=== PATIENT | female | born 1995 | race Caucasian/White ===

== ENCOUNTER 2023-12-06 17:13 | Emergency (ER) | payer BC, OTHER ==
[2023-12-06] MEDS ORDERED: Sodium Chloride 0.9% 10 ML Syringe FLUSH PRN (17:28)
[2023-12-06] MEDS: Sodium Chloride 0.9% 1,000 ML IV SCH (17:33)
[2023-12-06] MEDS: LORazepam 2 MG/ML SDV IVPUSH ONE ×4 (17:36→19:00)
[2023-12-06 17:43] LABS: BASOPHILS ABSOLUTE AUTO 0.1 x10-3/uL (0.0-0.1); BASOPHILS PERCENT AUTO 0.8 % (0.2-1.5); EOSINOPHILS ABSOLUTE AUTO 0.7 x10-3/uL (0.0-0.8); EOSINOPHILS PERCENT AUTO 6.6 % (0.6-8.1); HEMOGLOBIN 14.4 g/dL (11.4-15.5); LYMPHOCYTES ABSOLUTE AUTO 1.6 x10-3/uL (1.0-4.4); MEAN CORPUSCULAR HEMOGLOBIN 30.7 pg (23.9-33.9); MEAN CORPUSCULAR HGB CONC 32.7 g/dL (31.9-34.8); MEAN CORPUSCULAR VOLUME 93.8 fL (76.7-100.5); MEAN PLATELET VOLUME 9.8 fL (7.1-12.4); MONOCYTES ABSOLUTE AUTO 0.8 x10-3/uL (0.3-1.0); MONOCYTES PERCENT AUTO 6.7 % (4.4-15.7); NEUTROPHILS PERCENT AUTO 71.9 % (30.8-76.2); PLATELET COUNT,PLT 306 x10(3)uL (151-488); RED BLOOD CELL COUNT 4.69 x10(6)uL (3.60-5.20); RED CELL DISTRIBUTION WIDTH 13.4 % (12.3-16.5); WHITE BLOOD CELL COUNT,WBC 11.2 x10-3/uL (3.0-10.3)
[2023-12-06 17:45] LABS: BLOOD UREA NITROGEN,BUN 23 mg/dL (7-18); BUN/CREATININE RATIO 20.9 (9-20); CALCIUM 9.1 mg/dL (8.6-10.2); CARBON DIOXIDE,CO2 19 mmol/L (21-32); CHLORIDE,CL 102 mmol/L (100-110); CREATININE 1.1 mg/dL (0.55-1.02); ESTIMATED GFR 70 mL/min (>60); GLUCOSE RANDOM 116 mg/dL (80-116); POTASSIUM,K 3.3 mmol/L (3.5-5.3); SODIUM,NA 139 mmol/L (135-145)
[2023-12-06 17:51] LABS: A/G RATIO 1.2; ALANINE AMINOTRANSFERASE,ALT 128 U/L (12-36); ALBUMIN 3.7 g/dL (3.5-5.2); ALKALINE PHOSPHATASE 97 IU/L (56-112); ASPARTATE AMNIOTRANSFERASE,AST 73 IU/L (5-25); BILIRUBIN TOTAL 1.3 mg/dL (0.1-1.3); MAGNESIUM 1.7 mg/dL (1.8-2.5); PROTEIN TOTAL,TP 6.9 g/dL (6.0-8.0)
[2023-12-06] MEDS: Magnesium Sulfate/Water 2 GM in Premix Bag 1 BAG IV ONE (18:15)
[2023-12-06] MEDS: Potassium Chloride 20 MEQ in Premix Bag 1 BAG IV ONE (18:33)
[2023-12-06] MEDS: NS + KCl 20mEq/L 1,000 ML IV SCH (18:36)
== END 2023-12-06 22:29 | disposition home or self-care (01) ==
LOC: FB.ED 17:13
DX: F15.920 Other stimulant use, unspecified with intoxication, uncomplicated (principal); E83.42 Hypomagnesemia; E87.6 Hypokalemia; E66.9 Obesity, unspecified; Z79.899 Other long term (current) drug therapy; Z88.0 Allergy status to penicillin; Z91.048 Other nonmedicinal substance allergy status; Z91.018 Allergy to other foods; Z68.23 Body mass index [BMI] 23.0-23.9, adult
CPT/HCPCS: 36415; 80053; 82947; 83735; 85025; 85379; 86140; 93005; 93010; 96361; 96365; 96366; 96368; 96375; 96376; 99284; 99285; J2060; J3475; J3480; J7030

== ENCOUNTER 2024-03-31 15:15 | Emergency (ER) | payer BC ==
[2024-03-31 15:43] LABS: BLOOD UREA NITROGEN,BUN 15 mg/dL (7-18); BUN/CREATININE RATIO 18.8 (9-20); CALCIUM 8.9 mg/dL (8.6-10.2); CARBON DIOXIDE,CO2 24 mmol/L (21-32); CHLORIDE,CL 103 mmol/L (100-110); CREATININE 0.8 mg/dL (0.55-1.02); EST CRCL DRUG DOSING (CG) 92.53 mL/min; ESTIMATED GFR 102 mL/min (>60); GLUCOSE RANDOM 108 mg/dL (80-116); POTASSIUM,K 3.4 mmol/L (3.5-5.3); SODIUM,NA 139 mmol/L (135-145)
[2024-03-31 15:44] LABS: BASOPHILS ABSOLUTE AUTO 0.1 x10-3/uL (0.0-0.1); BASOPHILS PERCENT AUTO 0.9 % (0.2-1.5); EOSINOPHILS ABSOLUTE AUTO 0.3 x10-3/uL (0.0-0.8); EOSINOPHILS PERCENT AUTO 4.1 % (0.6-8.1); HEMATOCRIT 41.9 % (34.2-48.2); HEMOGLOBIN 13.8 g/dL (11.4-15.5); LYMPHOCYTES ABSOLUTE AUTO 1.8 x10-3/uL (1.0-4.4); LYMPHOCYTES PERCENT AUTO 24.9 % (18.4-52.1); MEAN CORPUSCULAR HEMOGLOBIN 30.5 pg (23.9-33.9); MEAN CORPUSCULAR HGB CONC 32.9 g/dL (31.9-34.8); MEAN CORPUSCULAR VOLUME 92.5 fL (76.7-100.5); MEAN PLATELET VOLUME 9.5 fL (7.1-12.4); MONOCYTES ABSOLUTE AUTO 0.6 x10-3/uL (0.3-1.0); MONOCYTES PERCENT AUTO 7.7 % (4.4-15.7); NEUTROPHILS ABSOLUTE AUTO 4.5 x10-3/uL (1.5-6.3); NEUTROPHILS PERCENT AUTO 62.4 % (30.8-76.2); PLATELET COUNT,PLT 323 x10(3)uL (151-488); RED BLOOD CELL COUNT 4.52 x10(6)uL (3.60-5.20); RED CELL DISTRIBUTION WIDTH 13.2 % (12.3-16.5); WHITE BLOOD CELL COUNT,WBC 7.3 x10-3/uL (3.0-10.3)
[2024-03-31] MEDS: LORazepam 2 MG/ML SDV IVPUSH ONE (15:45)
[2024-03-31] MEDS: Aspirin 81 MG Tab.Chew PO ONE (15:46)
[2024-03-31 15:49] LABS: A/G RATIO 1.2; ALANINE AMINOTRANSFERASE,ALT 57 U/L (12-36); ALBUMIN 3.8 g/dL (3.5-5.2); ALKALINE PHOSPHATASE 71 IU/L (56-112); ASPARTATE AMNIOTRANSFERASE,AST 36 IU/L (5-25); BILIRUBIN TOTAL 0.5 mg/dL (0.1-1.3); PROTEIN TOTAL,TP 6.9 g/dL (6.0-8.0)
[2024-03-31] MEDS: Diazepam 5 MG Tab PO ONE (16:23)
[2024-03-31] MEDS: Potassium Chloride 20 MEQ Tab.ER PO ONE (16:25)
== END 2024-03-31 17:15 | disposition home or self-care (01) ==
LOC: FB.ED 15:15
DX: F41.0 Panic disorder [episodic paroxysmal anxiety] (principal); E87.6 Hypokalemia; E66.9 Obesity, unspecified; Z79.899 Other long term (current) drug therapy; Z88.0 Allergy status to penicillin; Z91.048 Other nonmedicinal substance allergy status; Z91.018 Allergy to other foods; Z68.23 Body mass index [BMI] 23.0-23.9, adult
CPT/HCPCS: 71045; 80053; 83735; 83880; 84484; 85025; 85379; 93005; 93010; 96374; 99284; 99285-25; A9270-GY; J2060

== ENCOUNTER 2024-09-18 10:59 | Emergency (ER) | payer BC ==
[2024-09-18 11:57] LABS: BASOPHILS PERCENT AUTO 0.5 % (0.2-1.5); EOSINOPHILS ABSOLUTE AUTO 0.1 x10-3/uL (0.0-0.8); HEMATOCRIT 38.6 % (34.2-48.2); HEMOGLOBIN 12.6 g/dL (11.4-15.5); LYMPHOCYTES ABSOLUTE AUTO 0.9 x10-3/uL (1.0-4.4); LYMPHOCYTES PERCENT AUTO 12.8 % (18.4-52.1); MEAN CORPUSCULAR HEMOGLOBIN 29.6 pg (23.9-33.9); MEAN CORPUSCULAR HGB CONC 32.7 g/dL (31.9-34.8); MEAN CORPUSCULAR VOLUME 90.5 fL (76.7-100.5); MEAN PLATELET VOLUME 9.3 fL (7.1-12.4); MONOCYTES ABSOLUTE AUTO 0.6 x10-3/uL (0.3-1.0); NEUTROPHILS ABSOLUTE AUTO 5.4 x10-3/uL (1.5-6.3); NEUTROPHILS PERCENT AUTO 76.7 % (30.8-76.2); PLATELET COUNT,PLT 301 x10(3)uL (151-488); RED BLOOD CELL COUNT 4.26 x10(6)uL (3.60-5.20); RED CELL DISTRIBUTION WIDTH 15.5 % (12.3-16.5)
[2024-09-18] MEDS: Sodium Chloride 0.9% 1,000 ML IV SCH (11:58)
[2024-09-18] MEDS: Ondansetron 4 MG/2 ML SDV IVPUSH ONE (11:58)
[2024-09-18 12:01] LABS: BLOOD UREA NITROGEN,BUN 12 mg/dL (7-18); CALCIUM 8.3 mg/dL (8.6-10.2); CARBON DIOXIDE,CO2 28 mmol/L (21-32); CHLORIDE,CL 108 mmol/L (100-110); CREATININE 0.8 mg/dL (0.55-1.02); EST CRCL DRUG DOSING (CG) 92.53 mL/min; ESTIMATED GFR 102 mL/min (>60); GLUCOSE RANDOM 109 mg/dL (80-116); POTASSIUM,K 3.2 mmol/L (3.5-5.3); SODIUM,NA 144 mmol/L (135-145)
[2024-09-18 12:07] LABS: A/G RATIO 1.3; ALANINE AMINOTRANSFERASE,ALT 49 U/L (12-36); ALBUMIN 3.4 g/dL (3.5-5.2); ALKALINE PHOSPHATASE 63 IU/L (56-112); ASPARTATE AMNIOTRANSFERASE,AST 45 IU/L (5-25); BILIRUBIN TOTAL 0.8 mg/dL (0.1-1.3)
== END 2024-09-18 13:20 | disposition home or self-care (01) ==
LOC: FB.ED 10:59
DX: E87.6 Hypokalemia (principal); E88.09 Other disorders of plasma-protein metabolism, not elsewhere classified; R11.0 Nausea; E66.9 Obesity, unspecified; Z91.048 Other nonmedicinal substance allergy status; Z91.018 Allergy to other foods; Z88.0 Allergy status to penicillin; Z79.899 Other long term (current) drug therapy; Z68.21 Body mass index [BMI] 21.0-21.9, adult
CPT/HCPCS: 36415; 80053; 83735; 85025; 96361; 96374; 99284; J2405; J7030